=== PATIENT | male | born 1990 | race Asian ===

== ENCOUNTER 2019-02-12 19:23 | Emergency (ER) | payer OTHER ==
[~2019-02-12] VITALS: Ht 170.2 cm; Wt 74.8 kg
[2019-02-12 20:05] VITALS: Ht 170.2 cm; Wt 74.8 kg
[2019-02-12 22:10] VITALS: BP 143/63
== END 2019-02-12 22:10 | disposition home or self-care (01) ==
LOC: ED 19:23
DX: S81.812A Laceration without foreign body, left lower leg, initial encounter (principal); W22.8XXA Striking against or struck by other objects, initial encounter; Y93.89 Activity, other specified; Y92.89 Other specified places as the place of occurrence of the external cause; Y99.8 Other external cause status
CPT/HCPCS: 90715; J2001

== ENCOUNTER 2019-02-18 11:07 | Emergency (ER) | payer OTHER ==
[~2019-02-18] VITALS: Ht 170.2 cm; Wt 69.4 kg
[2019-02-18 11:24] VITALS: BP 140/85
== END 2019-02-18 12:41 | disposition home or self-care (01) ==
LOC: ED 11:07
DX: S81.812D Laceration without foreign body, left lower leg, subsequent encounter (principal); X58.XXXD Exposure to other specified factors, subsequent encounter